=== PATIENT | male | born 1950 | race Caucasian/White ===

== ENCOUNTER → 2017-06-18 | Outpatient (CLI) | payer MEDICARE ==
[~2017-06-18] MED LIST: ASPI-515 PO; ATOR40TA PO; COZAAR PO; CRESTOR PO; CYCL5TAB PO; HYDR-3237 PO; LIPITOR PO; VITAMIN E PO
== END | disposition home or self-care (01) ==
LOC: CVU 08:33
PROVIDERS: ATTEND Internal Medicine Cardiovascular Disease
DX: I65.23 Occlusion and stenosis of bilateral carotid arteries (principal); E78.5 Hyperlipidemia, unspecified; I10 Essential (primary) hypertension; I25.10 Atherosclerotic heart disease of native coronary artery without angina pectoris
CPT/HCPCS: 93880

== ENCOUNTER 2018-01-20 10:05 | Emergency (ER) | payer MEDICARE ==
[~2018-01-20] VITALS: Ht 175.3 cm; Wt 72.0 kg
[2018-01-20] MEDS ORDERED: ATOR-2 PO (11:08)
[2018-01-20] MEDS ORDERED: CARV12.52 PO (11:08)
[2018-01-20] MEDS ORDERED: LOSA100T6 PO (11:08)
[2018-01-20] MEDS ORDERED: CARV-39 PO (11:17)
[2018-01-20] MEDS ORDERED: LOSA1TAB25 PO (11:17)
[2018-01-20 11:47] VITALS: BP 108/72
== END 2018-01-20 11:49 | disposition home or self-care (01) ==
LOC: ED 10:53
DX: R07.9 Chest pain, unspecified (principal)
CPT/HCPCS: 36415; 93005; 99283; 99284; 99285

== ENCOUNTER → 2018-03-04 | Outpatient (CLI) | payer MEDICARE ==
[~2018-03-04] MED LIST changes: +ATOR-2 PO; +CARV-39 PO; +CARV12.52 PO; +LOSA100T6 PO; +LOSA1TAB25 PO
== END | disposition home or self-care (01) ==
LOC: CARD 08:54
PROVIDERS: ATTEND Internal Medicine Cardiovascular Disease
DX: I10 Essential (primary) hypertension (principal); I25.10 Atherosclerotic heart disease of native coronary artery without angina pectoris; Z87.891 Personal history of nicotine dependence; Z88.6 Allergy status to analgesic agent
CPT/HCPCS: 93017

== ENCOUNTER → 2020-07-02 | Outpatient (CLI) | payer MEDICARE ==
[~2020-07-02] MED LIST changes: +LOSA100T14 PO; -LOSA100T6 PO; +REGADENOSON 0.4 MG/5 ML SYRINGE ONE
== END | disposition home or self-care (01) ==
LOC: CFH 12:22
PROVIDERS: ATTEND Internal Medicine Cardiovascular Disease
DX: I25.10 Atherosclerotic heart disease of native coronary artery without angina pectoris (principal)
CPT/HCPCS: 78452; 93017; A9502; J2785